=== PATIENT | male | born 1970 | race Caucasian/White ===

== ENCOUNTER 2017-01-28 19:13 | Inpatient (IN) | payer BC, OTHER ==
[~2017-01-28] VITALS: Ht 177.8 cm; Wt 82.1 kg
[2017-01-28] MEDS ORDERED: SODIUM CHLORIDE 0.9% 1000ML 1,000 ML IV STA ×2 (19:42→23:22)
[2017-01-28] MEDS ORDERED: ONDANSETRON 8 MG/54 ML D5W IV STA (19:42)
--- NOTE | 2017-01-28 19:43 | EMERGENCY ROOM VISIT NOTE ---
History Report prepared by Heather: Rubia oCllier Under the Supervision of: Dayanna KhanO. First contact with patient: 19:21 Chief Complaint: GI ASSESSMENT Stated Complaint: STOMACH FLU History of Present Illness The patient is a 46 year old male who presents to the Emergency Room with complaints of constant vomiting beginning about 24 hours. The patient states that he ate chilli yesterday and has been throwing up since. He states that no one else who ate the chilli is sick. The patient reports fever, chills, inability to keep food down, nausea, and abdominal soreness from vomiting. He denies any recent travel or medication changes. The patient has a history of Crohn's disease. He notes his symptoms today are different than his previous Crohn's flare-ups. He also reports taking iron for anemia. Pt denies headache, change in vision, chest pain, shortness of breath, diarrhea, pain with urination , and melena. Source of History: patient Onset: 24 hours ago Position: other (generalized) Quality: other (vomiting) Timing: constant Associated Symptoms: + fevers, + chills, + nausea, + vomiting, + abdominal pain, No headache, No chest pain, No SOB, No diarrhea, No urinary symptoms Review of Systems See HPI for pertinent positives & negatives. A total of 10 systems reviewed and were otherwise negative. Past Medical & Surgical Medical Problems: (1) Crohns disease (2) Crohns disease Family History Patient reports no known family medical history. Social History Smoking Status: Never Smoker Marital Status: Housing Status: lives with significant other Current/Historical Medications Scheduled Ferrous Sulfate (Iron (Ferrous Sulfate)), 1 TAB PO DAILY Mercaptopurine (Mercaptopurine), 1.5 TAB PO DAILY Allergies Coded Allergies: No Known Allergies (Unverified , 01/28/17) Physical Exam Vital Signs Date Time Temp Pulse Resp B/P (MAP) Pulse Ox O2 Delivery O2 Flow Rate FiO2 01/28/17 23:36 86 127/75 01/28/17 22:12 70 127/75 01/28/17 19:51 93 16 143/93 97 Room Air 01/28/17 19:14 36.6 114 18 146/79 95 Room Air Physical Exam GENERAL: alert, well appearing, well nourished, no distress, non-toxic EYE EXAM: normal conjunctiva, PERRL and EOM's grossly intact OROPHARYNX: no exudate, no erythema, lips, buccal mucosa, and tongue normal and mucous membranes are moist NECK: supple, no nuchal rigidity, no adenopathy, non-tender LUNGS: Clear to auscultation. Normal chest wall mechanics HEART: no murmurs, S1 normal and S2 normal ABDOMEN: abdomen soft, non-tender, normo-active bowel sounds, no masses, no rebound or guarding. BACK: Back is symmetrical on inspection and there is no deformity, no midline tenderness, no CVA tenderness. SKIN: no rashes and no bruising UPPER EXTREMITIES: upper extremities are grossly normal. LOWER EXTREMITIES: No pitting edema. NEURO EXAM: Normal sensorium, cranial nerves II-XII grossly intact, normal speech, no gross weakness of arms, no gross weakness of legs. Medical Decision & Procedures ER Provider Diagnostic Interpretation: Radiology results have been interpreted by the radiologist and reviewed by me. PA CHEST WITH ABDOMINAL SERIES FINDINGS: A PA chest radiograph is obtained. No prior studies are available for comparison at the time of dictation. The cardiomediastinal silhouette is unremarkable. The lungs and pleural spaces are clear. No pneumothorax is seen. The bony thorax is grossly intact. Supine and erect abdominal radiographs are obtained. No prior studies are available for comparison at the time of dictation. There are distended gas-filled loops of small bowel which measure up to for point centimeter diameter. Numerous air-fluid levels are seen on the upright view. There is a paucity of gas in the colon, and the appearance is consistent with a small bowel obstruction. No evidence of intraperitoneal free air is seen. There are no abnormal abdominal calcifications. Phleboliths are seen in the pelvis. The lumbosacral spine and bony pelvis appear intact. IMPRESSION: 1. No active disease in the chest. 2. Findings are consistent with a small bowel obstruction. Electronically signed by: Taj Collins M.D. CT SCAN OF THE ABDOMEN AND PELVIS WITH IV CONTRAST FINDINGS: Lung bases: The heart is normal in size and without pericardial effusion. The lung bases are clear noting dependent atelectasis. There is a small hiatal hernia. Liver: The contrast-enhanced liver is enlarged, measuring 19.5 cm in length. The liver demonstrates diffusely diminished attenuation consistent with hepatic steatosis. There is no intrahepatic biliary ductal dilatation. The hepatic veins and portal veins are patent. Gallbladder: Unremarkable. Spleen: Normal in size and attenuation. Pancreas: Unremarkable. Adrenal glands: Unremarkable. Kidneys: The contrast enhanced kidneys are normal in size and without hydronephrosis. The kidneys enhance symmetrically. Abdominal vasculature: The abdominal aorta is normal in course and caliber. Bowel: There is a long segment of markedly thick-walled, edematous, and hyperemic small bowel involving the distal/terminal ileum. This extends at least 35 cm in length. The extreme small bowel loops are dilated and fluid-filled, measuring up to 3.5 cm in diameter. The colon is relatively decompressed. There is no pneumatosis intestinalis or portal venous gas. No abscess or fistula is identified. Interloop fluid is seen in the right lower quadrant. The appendix is normal as visualized noting some mucosal fat deposition. Some mucosal fat deposition is also identified throughout the colon. This is nonspecific and suggests chronic inflammation. Peritoneum: There is trace free fluid in the pelvis. No intraperitoneal free air is seen. There is a small fat-containing umbilical hernia. Lymphadenopathy: There are numerous mildly enlarged mesenteric lymph nodes, likely on a reactive basis. Pelvic viscera: The bladder, prostate, and seminal vesicles are normal as imaged. Skeletal structures: No lytic or blastic lesions are seen. IMPRESSION: 1. There is a long segment of markedly thick-walled, edematous, and hyperemic small bowel involving the distal/terminal ileum. This extends at least 35 cm in length and is consistent with a nonspecific enteritis/ileitis. This is likely on an infectious or inflammatory basis in this age group. Specifically, the appearance is concerning for Crohn's disease. Correlation with the clinical findings and medical history will be essential. 2. This causes small bowel obstruction as seen by x-ray. This is likely related to significant mucosal edema at the distal/terminal ileum. 3. There is trace interloop fluid as well as free fluid in the pelvis, likely on a reactive basis. 4. There is no evidence of perforation, fistula formation, or abscess. 5. Hepatomegaly and hepatic steatosis. 6. Additional findings as above. Electronically signed by: Taj Collins M.D. Laboratory Results 01/28/17 19:51 Red Blood Count 4.46, Mean Corpuscular Volume 89.2, Mean Corpuscular Hemoglobin 31.4, Mean Corpuscular Hemoglobin Concent 35.2, Mean Platelet Volume 9.7, Neutrophils (%) (Auto) 81.2, Lymphocytes (%) (Auto) 8.3, Monocytes (%) (Auto) 10.0, Eosinophils (%) (Auto) 0.0, Basophils (%) (Auto) 0.2, Neutrophils # (Auto ) 4.69, Lymphocytes # (Auto) 0.48, Monocytes # (Auto) 0.58, Eosinophils # (Auto ) 0.00, Basophils # (Auto) 0.01 01/28/17 19:51 Test 01/28/17 19:51 White Blood Count 5.78 K/uL (4.8-10.8) Red Blood Count 4.46 M/uL (4.7-6.1) Hemoglobin 14.0 g/dL (14.0-18.0) Hematocrit 39.8 % (42-52) Mean Corpuscular Volume 89.2 fL (80-100) Mean Corpuscular Hemoglobin 31.4 pg (25-34) Mean Corpuscular Hemoglobin Concent 35.2 g/dl (32-36) Platelet Count 157 K/uL (130-400) Mean Platelet Volume 9.7 fL (7.4-10.4) Neutrophils (%) (Auto) 81.2 % Lymphocytes (%) (Auto) 8.3 % Monocytes (%) (Auto) 10.0 % Eosinophils (%) (Auto) 0.0 % Basophils (%) (Auto) 0.2 % Neutrophils # (Auto) 4.69 K/uL (1.4-6.5) Lymphocytes # (Auto) 0.48 K/uL (1.2-3.4) Monocytes # (Auto) 0.58 K/uL (0.11-0.59) Eosinophils # (Auto) 0.00 K/uL (0-0.5) Basophils # (Auto) 0.01 K/uL (0-0.2) RDW Standard Deviation 44.0 fL (36.4-46.3) RDW Coefficient of Variation 13.5 % (11.5-14.5) Immature Granulocyte % (Auto) 0.3 % Immature Granulocyte # (Auto) 0.02 K/uL (0.00-0.02) Anion Gap 5.0 mmol/L (3-11) Est Creatinine Clear Calc Drug Dose 95.3 ml/min Estimated GFR () 104.1 Estimated GFR (Non- 89.9 BUN/Creatinine Ratio 17.1 (10-20) Calcium Level 8.9 mg/dl (8.5-10.1) Magnesium Level 1.9 mg/dl (1.8-2.4) Total Bilirubin 0.6 mg/dl (0.2-1) Aspartate Amino Transf (AST/SGOT) 11 U/L (15-37) Alanine Aminotransferase (ALT/SGPT) 25 U/L (12-78) Alkaline Phosphatase 113 U/L (45-117) Total Protein 7.3 gm/dl (6.4-8.2) Albumin 3.6 gm/dl (3.4-5.0) Globulin 3.7 gm/dl (2.5-4.0) Albumin/Globulin Ratio 1.0 (0.9-2) Lipase 83 U/L (73-393) Laboratory results per my review. Medications Administered Medications (Trade) Dose Ordered Sig/Derek Route Start Time Stop Time Status Last Admin Dose Admin Sodium Chloride 1,000 ml @ 999 mls/hr Q1H1M STAT IV 01/28/17 19:42 01/28/17 20:42 DC 01/28/17 19:51 999 MLS/HR Ondansetron HCl (Zofran Inj) 8 mg STK-MED ONCE .ROUTE 01/28/17 19:49 01/28/17 19:50 DC 01/28/17 19:50 8 MG Sodium Chloride 1,000 ml @ 125 mls/hr Q8H STAT IV 01/28/17 23:22 01/29/17 03:47 DC 01/28/17 23:22 125 MLS/HR ED Course 1934: The patient was evaluated in room C4. A complete history and physical exam was performed. 1941: ordered Ondansetron HCl 8 mg IV, Sodium Chloride 1000 ml @ 999 mls/hr IV. 1948: Ordered Zofran Inj 8 mg .ROUTE. 2049: I updated the patient on his lab results. He is resting comfortably. 2156: I updated the patient on his test results. He tolerated PO and is clinically feeling better. 2321: Ordered Sodium Chloride 1000 ml @ 125 mls/hr IV. 3: I reviewed the patient's case with DrKyle Larsen. He will evaluate the patient for further management. 0105: Dr. Garcia requested that I consult surgery for the patient. 0115: I reviewed the patient's case with Dr. Burleson. He will not evaluate the patient and advises that I consult GI for the patient and transfer him. 0130: I updated the patient on on his status. He states he follows up with Dr. Nasreen ZAPATA at [facility]. 0215: Dr. Garcia will evaluate the patient further. Medical Decision Differential diagnosis: Etiologies such as gastroenteritis, food borne illness, infections, appendicitis , diverticulitis, inflammatory bowel disease, obstruction, GI bleed, biliary pathology, Crohn's flare-up, as well as others were entertained. Patient's history and presentation was not initially classic for small bowel obstruction. Patient with no prior abdominal surgeries. Likely secondary to chronic edema/stenosis due to involved segment of Crohn's disease. Patient without any recurrent vomiting here, afebrile, labs stable, repeat abdominal exam soft, nontender. Case discussed with medicine as well as surgery. Attempts made to contact patient's GI specialist at her on [place]. These were unsuccessful. Patient aware of all results and concerns. Doubt ischemia, occult infectious etiology, additional pathology. Patient's presentation not consistent with acute Crohn's flare. Blood Pressure Screening Patient's blood pressure: Elevated blood pressure Blood pressure disposition: Referred to PCP (evaluated by hospitalist) Consults Time Called: 001 Consulting Physician: Dr. Larsen Returned Call: 0023 I reviewed the patient's case with Dr. Larsen. He will evaluate the patient for further management. Additional Consults: Time Called: 011 Consulted Physician: Dr. Burleson Returned Call: 0115 Additional Comments: I reviewed the patient's case with Dr. Burleson. He will not evaluate the patient and advises that I consult GI for the patient and transfer him. Impression Primary Impression: Vomiting Additional Impression: SBO (small bowel obstruction) Scribe Attestation The scribe's documentation has been prepared under my direction and personally reviewed by me in its entirety. I confirm that the note above accurately reflects all work, treatment, procedures, and medical decision making performed by me. Departure Information Dispostion Being Evaluated By Hospitalist Referrals No Doctor, Assigned (PCP) Patient Instructions My [facility] Additional Instructions You may use a nausea medication as provided. Please sip clear fluids at frequent intervals to stay well-hydrated. Please continue your other usual medications. If you develop recurrent vomiting, fevers, abdominal pain, noticed diarrhea, blood with the bowel movement, or you have any other new or concerning symptoms, please return the emergency room. Problem Qualifiers Primary Impression: Vomiting Vomiting type: unspecified Vomiting Intractability: non-intractable Nausea presence: with nausea Qualified Codes: R11.2 - Nausea with vomiting, unspecified
[2017-01-28] MEDS ORDERED: ONDANSETRON INJ 2 MG/ML 2 ML VIAL ONE (19:49)
[2017-01-28 20:00] LABS: BASO % 0.2 %; BASO ABS # 0.01 K/uL (0-0.2); COMPLETE YES; HEMATOCRIT 39.8 % (42-52); IG% 0.3 %; LYMPH % 8.3 %; LYMPH ABS # 0.48 K/uL (1.2-3.4); MEAN CELL VOLUME 89.2 fL (80-100); MEAN CORPUSCULAR HEMOGLOBIN 31.4 pg (25-34); MEAN CORPUSCULAR HGB CONC 35.2 g/dl (32-36); MEAN PLATELET VOLUME 9.7 fL (7.4-10.4); NEUT % 81.2 %; PLATELET COUNT 157 K/uL (130-400); RED BLOOD COUNT 4.46 M/uL (4.7-6.1); WHITE BLOOD COUNT 5.78 K/uL (4.8-10.8)
[2017-01-28] MEDS ORDERED: FERR50TA3 PO (20:07)
[2017-01-28] MEDS ORDERED: MRC50 PO (20:07)
[2017-01-28 20:25] LABS: BUN/CREATININE RATIO 17.1 (10-20); CALCIUM 8.9 mg/dl (8.5-10.1); MAGNESIUM 1.9 mg/dl (1.8-2.4); POTASSIUM 3.5 mmol/L (3.5-5.1)
--- NOTE | 2017-01-28 21:52 | DIAGNOSTIC IMAGING REPORT ---
PA CHEST WITH ABDOMINAL SERIES CLINICAL HISTORY: Vomiting. Generalized abdominal pain. FINDINGS: A PA chest radiograph is obtained. No prior studies are available for comparison at the time of dictation. The cardiomediastinal silhouette is unremarkable. The lungs and pleural spaces are clear. No pneumothorax is seen. The bony thorax is grossly intact. Supine and erect abdominal radiographs are obtained. No prior studies are available for comparison at the time of dictation. There are distended gas-filled loops of small bowel which measure up to for point centimeter diameter. Numerous air-fluid levels are seen on the upright view. There is a paucity of gas in the colon, and the appearance is consistent with a small bowel obstruction. No evidence of intraperitoneal free air is seen. There are no abnormal abdominal calcifications. Phleboliths are seen in the pelvis. The lumbosacral spine and bony pelvis appear intact. IMPRESSION: 1. No active disease in the chest. 2. Findings are consistent with a small bowel obstruction. Electronically signed by: Taj Collins M.D. 01/28/2017 9:50 PM Dictated Date/Time: 01/28/2017 9:49 PM
[2017-01-28] MEDS ORDERED: OPTIRAY 320 IV PRN (22:15)
--- NOTE | 2017-01-28 23:11 | DIAGNOSTIC IMAGING REPORT ---
CT SCAN OF THE ABDOMEN AND PELVIS WITH IV CONTRAST CLINICAL HISTORY: Nausea and vomiting. Small bowel obstruction shown by x-ray. COMPARISON STUDY: Abdominal radiograph dated 01/28/2017. TECHNIQUE: Following the IV administration of 94 cc of Optiray 320, CT scan of the abdomen and pelvis is performed from the lung bases to the proximal femora. Images are reviewed in the axial, sagittal, and coronal planes. IV contrast was administered without complication. A dose lowering technique was utilized adhering to the principles of ALARA. CT DOSE: 370.95 mGy.cm FINDINGS: Lung bases: The heart is normal in size and without pericardial effusion. The lung bases are clear noting dependent atelectasis. There is a small hiatal hernia. Liver: The contrast-enhanced liver is enlarged, measuring 19.5 cm in length. The liver demonstrates diffusely diminished attenuation consistent with hepatic steatosis. There is no intrahepatic biliary ductal dilatation. The hepatic veins and portal veins are patent. Gallbladder: Unremarkable. Spleen: Normal in size and attenuation. Pancreas: Unremarkable. Adrenal glands: Unremarkable. Kidneys: The contrast enhanced kidneys are normal in size and without hydronephrosis. The kidneys enhance symmetrically. Abdominal vasculature: The abdominal aorta is normal in course and caliber. Bowel: There is a long segment of markedly thick-walled, edematous, and hyperemic small bowel involving the distal/terminal ileum. This extends at least 35 cm in length. The extreme small bowel loops are dilated and fluid-filled, measuring up to 3.5 cm in diameter. The colon is relatively decompressed. There is no pneumatosis intestinalis or portal venous gas. No abscess or fistula is identified. Interloop fluid is seen in the right lower quadrant. The appendix is normal as visualized noting some mucosal fat deposition. Some mucosal fat deposition is also identified throughout the colon. This is nonspecific and suggests chronic inflammation. Peritoneum: There is trace free fluid in the pelvis. No intraperitoneal free air is seen. There is a small fat-containing umbilical hernia. Lymphadenopathy: There are numerous mildly enlarged mesenteric lymph nodes, likely on a reactive basis. Pelvic viscera: The bladder, prostate, and seminal vesicles are normal as imaged. Skeletal structures: No lytic or blastic lesions are seen. IMPRESSION: 1. There is a long segment of markedly thick-walled, edematous, and hyperemic small bowel involving the distal/terminal ileum. This extends at least 35 cm in length and is consistent with a nonspecific enteritis/ileitis. This is likely on an infectious or inflammatory basis in this age group. Specifically, the appearance is concerning for Crohn's disease. Correlation with the clinical findings and medical history will be essential. 2. This causes small bowel obstruction as seen by x-ray. This is likely related to significant mucosal edema at the distal/terminal ileum. 3. There is trace interloop fluid as well as free fluid in the pelvis, likely on a reactive basis. 4. There is no evidence of perforation, fistula formation, or abscess. 5. Hepatomegaly and hepatic steatosis. 6. Additional findings as above. Electronically signed by: Taj Collins M.D. 01/28/2017 11:09 PM Dictated Date/Time: 01/28/2017 11:00 PM
[2017-01-29] MEDS ORDERED: ALUMINUM/MAGNESIUM/SIMETH (MAALOX MAX) 30 ML UDC PO PRN (00:45)
[2017-01-29] MEDS ORDERED: ONDANSETRON INJ 2 MG/ML 2 ML VIAL IV PRN (00:45)
--- NOTE | 2017-01-29 00:57 | History and Physical ---
History & Physical Date & Time of Service: Jan 29, 2017 at 00:47 Chief Complaint: Stomach Flu Primary Care Physician: No Doctor, Assigned History of Present Illness Source: patient Kwaku Cardona is a 46 yo M with Crohn's Disease who is visiting from [place] for a conference at the [facility], who presents with intractable vomiting earlier today and found to have a small bowel obstruction. He reports he ate chili yesterday, then throughout yesterday until around 6pm today he had constant vomiting, while no one else who ate the chili was unwell. He reports mild abdominal pain in the epigastrium from where he was retching but feels this is muscular. He denies any other abdominal pain. He had a bowel movement earlier today. He denies any blood in the stools or vomit. He denies chest pain or shortness of breath. He denies any previous surgeries to the abdomen. He was diagnosed with Crohn's a few years ago and has been stable on his mercaptopurine. He sees a GI dr. annually in [place]. In the ED, he felt better with Zofran. He had a trial of crackers and started to feel nauseated again. He was found to have a SBO on Xray, which was then confirmed by CT scan. Past Medical/Surgical History PMHx Crohn's disease Anemia PSHx None Family History Patient reports no known family medical history. 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 A total of 10 systems reviewed and were otherwise negative. Physical Exam Vital Signs Date Time Temp Pulse Resp B/P (MAP) Pulse Ox O2 Delivery O2 Flow Rate FiO2 01/28/17 23:36 86 127/75 01/28/17 22:12 70 127/75 01/28/17 19:51 93 16 143/93 97 Room Air 01/28/17 19:14 36.6 114 18 146/79 95 Room Air General Appearance: WD/WN, no apparent distress Head: normocephalic, atraumatic Eyes: normal inspection, PERRL ENT: normal ENT inspection, hearing grossly normal Neck: supple, no JVD Respiratory/Chest: chest non-tender, lungs clear, normal breath sounds, no respiratory distress Cardiovascular: regular rate, rhythm, no murmur, normal peripheral pulses Abdomen/GI: normal bowel sounds, non tender, soft Back: normal inspection, no CVA tenderness, no muscle spasm Extremities/Musculoskelatal: normal inspection, no pedal edema 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, no motor/sensory deficits, alert, normal mood/affect, oriented x 3, + pertinent finding (flat affect) Skin: no rash Diagnostics Laboratory Results Results Past 24 Hours Test 01/28/17 19:51 Range/Units White Blood Count 5.78 4.8-10.8 K/uL Red Blood Count 4.46 4.7-6.1 M/uL Hemoglobin 14.0 14.0-18.0 g/dL Hematocrit 39.8 42-52 % Mean Corpuscular Volume 89.2 80-100 fL Mean Corpuscular Hemoglobin 31.4 25-34 pg Mean Corpuscular Hemoglobin Concent 35.2 32-36 g/dl Platelet Count 157 130-400 K/uL Mean Platelet Volume 9.7 7.4-10.4 fL Neutrophils (%) (Auto) 81.2 % Lymphocytes (%) (Auto) 8.3 % Monocytes (%) (Auto) 10.0 % Eosinophils (%) (Auto) 0.0 % Basophils (%) (Auto) 0.2 % Neutrophils # (Auto) 4.69 1.4-6.5 K/uL Lymphocytes # (Auto) 0.48 1.2-3.4 K/uL Monocytes # (Auto) 0.58 0.11-0.59 K/uL Eosinophils # (Auto) 0.00 0-0.5 K/uL Basophils # (Auto) 0.01 0-0.2 K/uL RDW Standard Deviation 44.0 36.4-46.3 fL RDW Coefficient of Variation 13.5 11.5-14.5 % Immature Granulocyte % (Auto) 0.3 % Immature Granulocyte # (Auto) 0.02 0.00-0.02 K/uL Sodium Level 139 136-145 mmol/L Potassium Level 3.5 3.5-5.1 mmol/L Chloride Level 103 98-107 mmol/L Carbon Dioxide Level 31 21-32 mmol/L Anion Gap 5.0 3-11 mmol/L Blood Urea Nitrogen 17 7-18 mg/dl Creatinine 1.00 0.60-1.40 mg/dl Est Creatinine Clear Calc Drug Dose 95.3 ml/min Estimated GFR () 104.1 Estimated GFR (Non- 89.9 BUN/Creatinine Ratio 17.1 10-20 Random Glucose 129 70-99 mg/dl Calcium Level 8.9 8.5-10.1 mg/dl Magnesium Level 1.9 1.8-2.4 mg/dl Total Bilirubin 0.6 0.2-1 mg/dl Aspartate Amino Transf (AST/SGOT) 11 15-37 U/L Alanine Aminotransferase (ALT/SGPT) 25 12-78 U/L Alkaline Phosphatase 113 45-117 U/L Total Protein 7.3 6.4-8.2 gm/dl Albumin 3.6 3.4-5.0 gm/dl Globulin 3.7 2.5-4.0 gm/dl Albumin/Globulin Ratio 1.0 0.9-2 Lipase 83 73-393 U/L Diagnostic Radiology PA CHEST WITH ABDOMINAL SERIES FINDINGS: A PA chest radiograph is obtained. No prior studies are available for comparison at the time of dictation. The cardiomediastinal silhouette is unremarkable. The lungs and pleural spaces are clear. No pneumothorax is seen. The bony thorax is grossly intact. Supine and erect abdominal radiographs are obtained. No prior studies are available for comparison at the time of dictation. There are distended gas-filled loops of small bowel which measure up to for point centimeter diameter. Numerous air-fluid levels are seen on the upright view. There is a paucity of gas in the colon, and the appearance is consistent with a small bowel obstruction. No evidence of intraperitoneal free air is seen. There are no abnormal abdominal calcifications. Phleboliths are seen in the pelvis. The lumbosacral spine and bony pelvis appear intact. IMPRESSION: 1. No active disease in the chest. 2. Findings are consistent with a small bowel obstruction. Electronically signed by: Taj Collins M.D. CT SCAN OF THE ABDOMEN AND PELVIS WITH IV CONTRAST FINDINGS: Lung bases: The heart is normal in size and without pericardial effusion. The lung bases are clear noting dependent atelectasis. There is a small hiatal hernia. Liver: The contrast-enhanced liver is enlarged, measuring 19.5 cm in length. The liver demonstrates diffusely diminished attenuation consistent with hepatic steatosis. There is no intrahepatic biliary ductal dilatation. The hepatic veins and portal veins are patent. Gallbladder: Unremarkable. Spleen: Normal in size and attenuation. Pancreas: Unremarkable. Adrenal glands: Unremarkable. Kidneys: The contrast enhanced kidneys are normal in size and without hydronephrosis. The kidneys enhance symmetrically. Abdominal vasculature: The abdominal aorta is normal in course and caliber. Bowel: There is a long segment of markedly thick-walled, edematous, and hyperemic small bowel involving the distal/terminal ileum. This extends at least 35 cm in length. The extreme small bowel loops are dilated and fluid-filled, measuring up to 3.5 cm in diameter. The colon is relatively decompressed. There is no pneumatosis intestinalis or portal venous gas. No abscess or fistula is identified. Interloop fluid is seen in the right lower quadrant. The appendix is normal as visualized noting some mucosal fat deposition. Some mucosal fat deposition is also identified throughout the colon. This is nonspecific and suggests chronic inflammation. Peritoneum: There is trace free fluid in the pelvis. No intraperitoneal free air is seen. There is a small fat-containing umbilical hernia. Lymphadenopathy: There are numerous mildly enlarged mesenteric lymph nodes, likely on a reactive basis. Pelvic viscera: The bladder, prostate, and seminal vesicles are normal as imaged. Skeletal structures: No lytic or blastic lesions are seen. IMPRESSION: 1. There is a long segment of markedly thick-walled, edematous, and hyperemic small bowel involving the distal/terminal ileum. This extends at least 35 cm in length and is consistent with a nonspecific enteritis/ileitis. This is likely on an infectious or inflammatory basis in this age group. Specifically, the appearance is concerning for Crohn's disease. Correlation with the clinical findings and medical history will be essential. 2. This causes small bowel obstruction as seen by x-ray. This is likely related to significant mucosal edema at the distal/terminal ileum. 3. There is trace interloop fluid as well as free fluid in the pelvis, likely on a reactive basis. 4. There is no evidence of perforation, fistula formation, or abscess. 5. Hepatomegaly and hepatic steatosis. 6. Additional findings as above. Electronically signed by: Taj Collins M.D. Impression Assessment and Plan 46 yo M with Crohn's flare in the terminal ileum causing a small bowel obstruction, presenting w/intractable nausea - at this stage does not have evidence of an acute abdomen nor intractable vomiting requiring an NG tube. Nausea/vomiting - Continue Zofran / Phenergan PRN Small bowel obstruction - Surgery consult (Dr Coleman will discuss w/Dr Lance to evaluate) - NPO except for meds - IV fluids Crohn's disease - GI Consult - Will continue his mercaptopurine VTE: Lovenox Dispo: Med/Surg Code status: Full Resident Physician Supervision Note: I was present with Dr. Elizalde during the history and exam. I discussed the case with the resident and agree with the findings and plan as documented in the note. Any exceptions or clarifications are listed here: 46 y/o M Hx Crohns disease treated with 6MP only over the last several years. He has no history of related surgeries, hospitalizations or SBOs. He is visiting from [place] - he describes abd pain nausea and vomiting - he has chronic diarrhea. A CT obtained in the ER is consistent with an SBO, OE AAO x 3 S1,2 R CTAB NT, ND No CCE P: NPO, IVF, IV steroids, GI consult We are informed that he may need transfer if surgery is indicated due to his underlying disease. Above discussed with pt and ER attending. Documented By: Herber Garcia VTE Prophylaxis VTE Risk Assessment Done? Y/N: Yes Risk Level: Moderate Resident Tracking Resident Involvement: Resident Care Provided Care Provided: Adult Hospital Medicine
[2017-01-29 02:30] VITALS: BP 128/83; PULSE 82; TEMP 37.3; O2SAT 96; Ht 177.8 cm; Wt 82.1 kg
[2017-01-29] MEDS: METHYLPREDNISOLONE IV 60 MG in SYRINGE 0 ML IV SCH ×2 (04:01→09:40)
[2017-01-29] MEDS: LACTATED RINGER'S 1000ML 1,000 ML IV SCH ×2 (04:01→11:23)
[2017-01-29 07:22] VITALS: BP 108/63; PULSE 67; TEMP 37; O2SAT 97
[2017-01-29 07:55] LABS: PROTHROMBIN TIME (PATIENT) 10.4 SECONDS (9.0-12.0)
[2017-01-29] MEDS ORDERED: FERROUS SULFATE 325 MG TAB PO SCH (09:00)
[2017-01-29] MEDS ORDERED: MERCAPTOPURINE 50 MG TAB PO SCH (09:00)
--- NOTE | 2017-01-29 09:47 | Gastrointestinal Consultation ---
Gastrointestinal Consultation Date of Consultation: Jan 29, 2017 Attending Physician: Dr. Garcia Consulting Physician: Carol Cochran PA-C Reason for Consultation: Crohn's Disease History of Present Illness Patient is a 46 year old male with a past medical history of Crohn's Disease who presented to the hospital with concern for the "stomach flu." The patient is traveling here for a work conference. He is from [place] and sees a group leader semiconductor processing there. He reports that he has been diagnosed for approximately 2 years. He reports that he has been on Lialda for the majority of that time, but then states he was switched to 75 mg Mercaptopurine at some point. He reports that he sees his group leader semiconductor processing annually. He cannot recall the specific findings on his colonoscopy. He reports nausea, vomiting, and intermittent diarrhea. He denies rectal bleeding. In the ER, the patient had an xray that indicated a small bowel obstruction. A CT scan was performed and indicated a long-segment of markedly thick-waled, edematous, and hyperemic small bowel involved the distal/terminal ileum. This extends at least 35 cm in length and is consistent with a diagnosis of Crohn's Disease. This finding appears to be contributing to a small bowel obstruction. He denies family history of IBD or GI malignancy. He says he has never been on Prednisone therapy previously. Past Medical/Surgical History Medical Problems: (1) SBO (small bowel obstruction) Status: Acute (2) Vomiting Status: Acute Past Medical History: Crohn's Disease Past Surgical History: Denies Family History Patient reports no known family medical history. 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) Allergies Coded Allergies: No Known Allergies (Unverified , 01/28/17) Current Medications Home Meds and Scripts Medications Dose Route/Sig Max Daily Dose Days Date Category Iron (Ferrous Sulfate) (Ferrous Sulfate) 50 Mg Tab 1 Tab PO DAILY 01/28/17 Reported Mercaptopurine 50 Mg Tab 1.5 Tab PO DAILY 01/28/17 Reported Review of Systems Constitutional: No fever, No chills, No problem reported Respiratory: No cough, No shortness of breath Cardiac: No chest pain Abdomen: + pain, + nausea, + vomiting, + diarrhea, No constipation, No GI bleeding Musculoskeletal: No joint pain Psych: No problem reported Heme: No problem reported Skin: No problem reported Physical Exam Date Time Temp Pulse Resp B/P (MAP) Pulse Ox O2 Delivery O2 Flow Rate FiO2 01/29/17 07:30 Room Air 01/29/17 07:22 37.0 67 16 108/63 (78) 97 Room Air 01/29/17 02:30 Room Air 01/29/17 02:30 37.3 82 16 128/83 96 Room Air 01/29/17 02:16 36.6 82 16 126/72 98 01/29/17 02:00 82 16 126/72 98 Room Air 01/28/17 23:36 86 127/75 01/28/17 22:12 70 127/75 01/28/17 19:51 93 16 143/93 97 Room Air 01/28/17 19:14 36.6 114 18 146/79 95 Room Air General Appearance: WD/WN, no apparent distress Eyes: normal inspection, PERRL ENT: hearing grossly normal Respiratory/Chest: lungs clear, normal breath sounds Cardiovascular: regular rate, rhythm Abdomen: + abnormal bowel sounds, + distended, + tenderness Extremities: non-tender Neurologic/Psych: alert, oriented x 3 Skin: normal color Laboratory Results Last 24 Hours Test 01/28/17 19:51 01/29/17 07:27 White Blood Count 5.78 K/uL Red Blood Count 4.46 M/uL Hemoglobin 14.0 g/dL Hematocrit 39.8 % Mean Corpuscular Volume 89.2 fL Mean Corpuscular Hemoglobin 31.4 pg Mean Corpuscular Hemoglobin Concent 35.2 g/dl Platelet Count 157 K/uL Mean Platelet Volume 9.7 fL Neutrophils (%) (Auto) 81.2 % Lymphocytes (%) (Auto) 8.3 % Monocytes (%) (Auto) 10.0 % Eosinophils (%) (Auto) 0.0 % Basophils (%) (Auto) 0.2 % Neutrophils # (Auto) 4.69 K/uL Lymphocytes # (Auto) 0.48 K/uL Monocytes # (Auto) 0.58 K/uL Eosinophils # (Auto) 0.00 K/uL Basophils # (Auto) 0.01 K/uL RDW Standard Deviation 44.0 fL RDW Coefficient of Variation 13.5 % Immature Granulocyte % (Auto) 0.3 % Immature Granulocyte # (Auto) 0.02 K/uL Sodium Level 139 mmol/L Potassium Level 3.5 mmol/L Chloride Level 103 mmol/L Carbon Dioxide Level 31 mmol/L Anion Gap 5.0 mmol/L Blood Urea Nitrogen 17 mg/dl Creatinine 1.00 mg/dl Est Creatinine Clear Calc Drug Dose 95.3 ml/min Estimated GFR () 104.1 Estimated GFR (Non- 89.9 BUN/Creatinine Ratio 17.1 Random Glucose 129 mg/dl Calcium Level 8.9 mg/dl Magnesium Level 1.9 mg/dl Total Bilirubin 0.6 mg/dl Aspartate Amino Transf (AST/SGOT) 11 U/L Alanine Aminotransferase (ALT/SGPT) 25 U/L Alkaline Phosphatase 113 U/L Total Protein 7.3 gm/dl Albumin 3.6 gm/dl Globulin 3.7 gm/dl Albumin/Globulin Ratio 1.0 Lipase 83 U/L Prothrombin Time 10.4 SECONDS Prothromb Time International Ratio 1.0 Impression Patient is a 46 year old male with Crohn's Disease who presents with nausea, vomiting, & diarrhea with CT findings of at least 35 mm of thick-walled, edematous, and hyperemic small bowel involving the distal/terminal ileum contributing to a small bowel obstruction. Plan Given extent of patient's findings, would recommend surgical evaluation. Would recommend continuation of his IV Solumedrol at 40 mg BID and continuation of NPO status. Suspect patient will need advanced to biologic therapy as an outpatient and he will likely require a colonoscopy. Logistically, the patient is complicated as he is from [place] and does not wish to be transferred hospital to hospital at this time as he reports he needs to check out of his hotel and drive his vehicle home for further evaluation with his home GI. If patient is unwilling to be transferred, would recommend at the very least that we reassess imaging for clinical improvement of the SBO prior to allowing him to leave. Discussed that if he does decide to leave rather than be transferred, would recommend he follow a clear liquid diet, continue Prednisone therapy (8 week taper beginning at 40 mg daily for 1 week and decreasing by 5 mg weekly for the 8 week duration), and seek immediate evaluation upon return to [place]. Thank you for allowing us to participate in the care of this patient. If you should have any further questions or concerns, do not hesitate to contact us. Agree with EVARISTO Brown as above Patient was discharged prior to my evaluation.
[2017-01-29] MEDS ORDERED: ENOXAPARIN 40 MG/0.4 ML SYR SQ SCH (10:00)
--- NOTE | 2017-01-29 11:24 | DIAGNOSTIC IMAGING REPORT ---
KUB CLINICAL HISTORY: Re-evaluate SBO COMPARISON STUDY: 01/28/2017 FINDINGS: There is persistent small bowel dilatation with a left upper quadrant small bowel loop measuring 5.5 cm in diameter. There is no pathologic colonic dilatation. IMPRESSION: Persistent small bowel obstructive pattern with small bowel loops measuring up to 5.5 cm in diameter Electronically signed by: Will Montoya M.D. 01/29/2017 11:22 AM Dictated Date/Time: 01/29/2017 11:22 AM
[2017-01-29 15:23] VITALS: BP 127/73; PULSE 79; TEMP 36.8; O2SAT 96
--- NOTE | 2017-01-29 15:28 | Discharge Instructions ---
Discharge Instructions Date of Service Jan 29, 2017. Admission Reason for Admission: Crohns Disease, Sbo Discharge Discharge Diagnosis / Problem: Crohn's Flair and Small Bowel Obstruction Discharge Goals Goal(s): Decrease discomfort, Improve function, Increase independence Activity Recommendations Activity Limitations: resume your previous activity . Instructions / Follow-Up Instructions / Follow-Up Small Bowel Obstruction Likely from Crohn's Flair: - You were treated with Steroids and your normal medication. - You need to be seen either by your GI doctor or go to the hospital in [place] for further evaluation - You will likely need a steroid taper to help reduce this flair - For the small bowel obstruction - this is likely from the inflammation in your bowel from the Crohn's. -- You may have a clear liquid diet (jello, soup broth) but eat slowly until you start passing gas and having a bowel movement - Seek immediate care upon arriving to [facility] Diet Patient's current hospital diet: Discharge Diet Recommended Diet: Clear Liquid Diet Pending Studies Studies pending at discharge: no Medical Emergencies . Who to Call and When: Medical Emergencies: If at any time you feel your situation is an emergency, please call 911 immediately. . Non-Emergent Contact Non-Emergency issues call your: Primary Care Provider, Microfilm Duplicating Unit Supervisor Call Non-Emergent contact if: you have a fever, your pain is concerning you, you have any medication questions . . "Provider Documentation" section prepared by Reyna Vanegas. . VTE Core Measure Inpt VTE Proph given/why not?: SCD's
[2017-01-29 15:47] VITALS: BP 127/73; PULSE 79; TEMP 36.8; O2SAT 96
--- NOTE | 2017-01-29 18:27 | Discharge Summary ---
Discharge Summary Date of Service Jan 29, 2017. Discharge Summary Admission Date: Jan 29, 2017 at 00:47 Discharge Date: Jan 29, 2017 Discharge Disposition: Home Principal Diagnosis: SBO due to Crohn's Flair Problems/Secondary Diagnoses: 1. Crohn's Disease 2. Anemia Procedures: CT SCAN OF THE ABDOMEN AND PELVIS WITH IV CONTRAST FINDINGS: Lung bases: The heart is normal in size and without pericardial effusion. The lung bases are clear noting dependent atelectasis. There is a small hiatal hernia. Liver: The contrast-enhanced liver is enlarged, measuring 19.5 cm in length. The liver demonstrates diffusely diminished attenuation consistent with hepatic steatosis. There is no intrahepatic biliary ductal dilatation. The hepatic veins and portal veins are patent. Gallbladder: Unremarkable. Spleen: Normal in size and attenuation. Pancreas: Unremarkable. Adrenal glands: Unremarkable. Kidneys: The contrast enhanced kidneys are normal in size and without hydronephrosis. The kidneys enhance symmetrically. Abdominal vasculature: The abdominal aorta is normal in course and caliber. Bowel: There is a long segment of markedly thick-walled, edematous, and hyperemic small bowel involving the distal/terminal ileum. This extends at least 35 cm in length. The extreme small bowel loops are dilated and fluid-filled, measuring up to 3.5 cm in diameter. The colon is relatively decompressed. There is no pneumatosis intestinalis or portal venous gas. No abscess or fistula is identified. Interloop fluid is seen in the right lower quadrant. The appendix is normal as visualized noting some mucosal fat deposition. Some mucosal fat deposition is also identified throughout the colon. This is nonspecific and suggests chronic inflammation. Peritoneum: There is trace free fluid in the pelvis. No intraperitoneal free air is seen. There is a small fat-containing umbilical hernia. Lymphadenopathy: There are numerous mildly enlarged mesenteric lymph nodes, likely on a reactive basis. Pelvic viscera: The bladder, prostate, and seminal vesicles are normal as imaged. Skeletal structures: No lytic or blastic lesions are seen. IMPRESSION: 1. There is a long segment of markedly thick-walled, edematous, and hyperemic small bowel involving the distal/terminal ileum. This extends at least 35 cm in length and is consistent with a nonspecific enteritis/ileitis. This is likely on an infectious or inflammatory basis in this age group. Specifically, the appearance is concerning for Crohn's disease. Correlation with the clinical findings and medical history will be essential. 2. This causes small bowel obstruction as seen by x-ray. This is likely related to significant mucosal edema at the distal/terminal ileum. 3. There is trace interloop fluid as well as free fluid in the pelvis, likely on a reactive basis. 4. There is no evidence of perforation, fistula formation, or abscess. 5. Hepatomegaly and hepatic steatosis. 6. Additional findings as above. KUB FINDINGS: There is persistent small bowel dilatation with a left upper quadrant small bowel loop measuring 5.5 cm in diameter. There is no pathologic colonic dilatation. IMPRESSION: Persistent small bowel obstructive pattern with small bowel loops measuring up to 5.5 cm in diameter Consultations: 1. GI Medication Reconciliation Continued Medications: Ferrous Sulfate (Iron (Ferrous Sulfate)) 50 Mg Tab 1 TAB PO DAILY Mercaptopurine (Mercaptopurine) 50 Mg Tab 1.5 TAB PO DAILY, TAB Discharge Exam Review of Systems: Constitutional: No fever, No chills ENT: No nasal symptoms, No sore throat, No trouble swallowing Respiratory: No cough, No shortness of breath Cardiovascular: No chest pain, No palpitations Abdomen: No pain, No nausea, No vomiting, No diarrhea, No constipation, No GI bleeding Musculoskeletal: No swelling, No calf pain Genitourinary - Male: No dysuria Hematologic / Lymphatic: No abnormal bleeding/bruising, No clotting problems Integumentary: No rash Physical Exam: General Appearance: WD/WN, no apparent distress Eyes: sclerae normal ENT: hearing grossly normal Neck: supple, no JVD, trachea midline Respiratory/Chest: lungs clear, normal breath sounds, no respiratory distress, no accessory muscle use Cardiovascular: regular rate, rhythm, no gallop, no murmur Abdomen / GI: non tender, soft (distended minimally), + abnormal bowel sounds (hypoactive) Extremities: no calf tenderness, no pedal edema Neurologic/Psychiatric: alert, oriented x 3 Skin: normal color, warm/dry Hospital Course ADMISSION: Kwaku Cardona is a 46 yo M with Crohn's Disease who is visiting from [place] for a conference at the [facility], who presents with intractable vomiting earlier today and found to have a small bowel obstruction. He reports he ate chili yesterday, then throughout yesterday until around 6pm today he had constant vomiting, while no one else who ate the chili was unwell. He reports mild abdominal pain in the epigastrium from where he was retching but feels this is muscular. He denies any other abdominal pain. He had a bowel movement earlier today. He denies any blood in the stools or vomit. He denies chest pain or shortness of breath. He denies any previous surgeries to the abdomen. He was diagnosed with Crohn's a few years ago and has been stable on his mercaptopurine. He sees a GI dr. annually in [place]. In the ED, he felt better with Zofran. He had a trial of crackers and started to feel nauseated again. He was found to have a SBO on Xray, which was then confirmed by CT scan. HOSPITAL COURSE: Mr. Cardona was admitted for SBO likely due to his Crohn's disease. His vomiting has subsided and denies abdominal pain. Bowel sounds are hypoactive but very minimal distention. No indication for insertion of NGT. He was seen and evaluated by our GI team. They recommended transfer for colorectal surgery evaluation that we cannot offer here. Patient did not want to have an acute transfer to [place]. Patient was treated with IV steroids during admission with follow-up KUB on 01/29 that revealed persistent SBO. Patient will be discharged with the instructions to present to the hospital in [place] or with his GI doctor for further evaluation and treatment. Advised to consume a clear liquid diet and to eat slowly. He had steroid injection here and with plans to follow-up in [place], he was not sent out with a steroid taper. Would defer to his GI doctor to continuation of his steroid taper. A CD with his CT abd/pelvis and f/u KUB was burned and sent with the patient. He is hemodynamically stable and will be discharged home with instruction to follow- up in [place]. Total Time Spent: Greater than 30 minutes This includes examination of the patient, discharge planning, medication reconciliation, and communication with other providers. Discharge Instructions Please refer to the electronic Patient Visit Report (Discharge Instructions) for additional information.
[2017-01-29] MEDS ORDERED: METHYLPREDNISOLONE IV 40 MG in SYRINGE 0 ML IV SCH (21:00)
== END 2017-01-29 16:55 | disposition home or self-care (01) | DRG 386 ==
LOC: C.EDB 19:15 → C.MSN 01-29 00:47 → ENRESERV 01-29 00:55
PROVIDERS: ADMIT Internal Medicine; ATTEND Internal Medicine
DX: K50.012 Crohn's disease of small intestine with intestinal obstruction (principal); R11.2 Nausea with vomiting, unspecified; K52.9 Noninfective gastroenteritis and colitis, unspecified; D64.9 Anemia, unspecified; Z79.899 Other long term (current) drug therapy